=== PATIENT | female | born 1945 | race Caucasian/White ===

== ENCOUNTER 2019-02-04 09:09 | Emergency (ER) | payer MEDICARE, BC ==
[2019-02-04 09:26] VITALS: BP 107/52
--- NOTE | 2019-02-04 10:41 | UC ---
Skin Complaint HPI - HPI Summary HPI Summary: PATIENT HAS BEEN DOING A LOT OF WORK IN HER HOUSE OVER THE PAST FEW DAYS. 3 DAYS AGO NOTICED A DARK SPOT UNDER HER RIGHT THUMBNAIL. IT IS BECOMING MORE PAINFUL AND THE SURROUNDING SKIN IS TURNING RED. NO DRAINAGE. NO FEVER. UNKNOWN DATE OF LAST TETANUS. - History of Current Complaint Chief Complaint: UCSkin Time Seen by Provider: 02/04/19 10:23 Stated Complaint: FB IN FINGER Hx Obtained From: Patient Onset/Duration: Gradual Onset, Lasting Days, Still Present Timing: Constant Onset Severity: Moderate Current Severity: Moderate Pain Intensity: 3 Pain Scale Used: 0-10 Numeric Character: Pain, Redness Aggravating Factor(s): Touch Alleviating Factor(s): Nothing Associated Signs & Symptoms: Positive: Tenderness Related History: Foreign Body - Allergy/Home Medications Allergies/Adverse Reactions: Allergies Allergy/AdvReac Type Severity Reaction Status Date / Time azithromycin Allergy Severe GI Upset Verified 07/22/17 07:43 erythromycin base Allergy Intermediate GI Upset Verified 07/22/17 07:43 prochlorperazine Allergy Intermediate Altered Verified 07/22/17 07:43 Mental Status Sulfa (Sulfonamide AdvReac Mild Nausea Verified 07/22/17 07:43 Antibiotics) Home Medications: Home Medications Atorvastatin* [Lipitor 20 MG*] 20 mg PO DAILY 02/04/19 [History Confirmed ] Enalapril Maleate [Vasotec] 10 mg PO DAILY 02/04/19 [History Confirmed 02/04/19] Mirtazapine 7.5 mg PO BEDTIME 02/04/19 [History Confirmed 02/04/19] buPROPion HCl [Bupropion Xl] 150 mg PO DAILY 02/04/19 [History Confirmed ] PMH/Surg Hx/FS Hx/Imm Hx Cancer History: Breast Cancer - Surgical History Surgical History: Yes Surgery Procedure, Year, and Place: bilateral mastectomy,tonsillectomy - Family History Known Family History: Positive: Non-Contributory - Social History Alcohol Use: None Substance Use Type: None Substance Use Comment - Amount & Last Used: Flexeril, Nucynta, Smoking Status (MU): Never Smoked Tobacco Have You Smoked in the Last Year: No Review of Systems All Other Systems Reviewed And Are Negative: Yes Constitutional: Positive: Negative Skin: Positive: Other - SPLINTER RIGHT THUMB Respiratory: Positive: Negative Cardiovascular: Positive: Negative Gastrointestinal: Positive: Negative Musculoskeletal: Positive: Negative Physical Exam Triage Information Reviewed: Yes Appearance: Well-Appearing, No Pain Distress, Well-Nourished Vital Signs: Initial Vital Signs Temp 97.8 F 02/04/19 09:22 Pulse 81 02/04/19 09:22 Resp 18 02/04/19 09:22 BP 107/52 02/04/19 09:22 Pulse Ox 98 02/04/19 09:22 Vital Signs Reviewed: Yes Eyes: Positive: Conjunctiva Clear ENT: Positive: Hearing grossly normal Neck: Positive: Supple Respiratory: Positive: No respiratory distress, No accessory muscle use Cardiovascular: Positive: Pulses Normal Abdomen Description: Positive: Soft Musculoskeletal: Positive: ROM Intact, No Edema Neurological: Positive: Alert Psychological: Positive: Age Appropriate Behavior Skin: Positive: Other - RIGHT THUMB WITH ERYTHEMA DISTALLY. 2MM DARK SPOT UNDER DISTAL NAIL BED Course/Dx - Course Course Of Treatment: PATIENT WITH PROBABLE SPLINTER UNDER RIGHT THUMBNAIL WITH ASSOCIATED INFECTION. DISCUSSED WITH PATIENT DIGITAL BLOCK WITH ATTEMPTED REMOVAL OF SPLINTER. PATIENT OPTS FOR HOT SOAKS, ANTIBIOTICS AND CAREFUL OBSERVATION AT HOME. WILL COVER WITH KEFLEX. SHE WILL FOLLOW-UP WITH HER PCP OR RETURN TO THE URGENT CARE IF SHE IS NOT IMPROVING OVER THE NEXT WEEK. TDAP BOOSTED. - Diagnoses Provider Diagnosis: Foreign body of right thumb with infection, Need for Tdap vaccination Discharge ED - Sign-Out/Discharge Documenting (check all that apply): Patient Departure All imaging exams completed and their final reports reviewed: No Studies - Discharge Plan Condition: Stable Disposition: HOME Prescriptions: Cephalexin CAP* [Keflex 500 CAP*] 1,000 mg PO BID #[id number] cap Patient Education Materials: Soft Tissue Foreign Body (ED), Cellulitis (ED) Referrals: Lauren Guevara MD [Primary Care Provider] - If Needed Additional Instructions: SOAK YOUR THUMB IN HOT WATER 4 TIMES DAILY TAKE THE ANTIBIOTICS TWICE DAILY PRESCRIBED TO COVER FOR INFECTION ALLOW YOUR NAIL TO GROW OUT AND THE FOREIGN BODY MAY COME OUT SEEK FOLLOW-UP IF YOU DEVELOP INCREASING PAIN, SPREADING REDNESS OF THE SKIN, PURULENT DRAINAGE, FEVER OR ANY OTHER CONCERNING SYMPTOMS. - Billing Disposition and Condition Condition: STABLE Disposition: Home
[2019-02-04] MEDS ORDERED: Tetan/Diph/Pertus SYR(Tdap)* 0.5 ML SYR(BOOSTRIX) use SYR contains LATEX IM ONE (10:54)
== END 2019-02-04 11:09 | disposition home or self-care (01) ==
LOC: UCEAST 09:09
DX: S60.351A Superficial foreign body of right thumb, initial encounter (principal); Z23 Encounter for immunization; Z88.1 Allergy status to other antibiotic agents; Z88.2 Allergy status to sulfonamides; Z85.3 Personal history of malignant neoplasm of breast; Z88.8 Allergy status to other drugs, medicaments and biological substances; W45.8XXA Other foreign body or object entering through skin, initial encounter; Y92.009 Unspecified place in unspecified non-institutional (private) residence as the place of occurrence of the external cause
CPT/HCPCS: 90715; 99213; G0463

== ENCOUNTER 2023-05-15 15:07 | Inpatient (IN) ==
[2023-05-15] MEDS: Lactated Ringers 1000 ml BAG 1,000 ML IV ONE (15:41)
[2023-05-15] MEDS: Ondansetron 4 mg VIAL 2 MG/ML 2 ml VIAL IV ONE ×2 (15:41→15:43)
[2023-05-15] MEDS: Labetalol IV 5 MG/ML 20 ml VIAL IV PUSH ONE (16:02)
[2023-05-15] MEDS ORDERED: Azithromycin 500 mg/250 ml NS 500 MG/250 ML BAG ONE (16:30)
[2023-05-15 16:44] LABS: ABS Lymphocytes 0.5 10^3/uL (1.0-4.8); ABS Monocytes 0.4 10^3/uL (0.0-0.9); ABS Neutrophils 11.6 10^3/uL (1.5-7.6); ABS Nucleated RBC 0.02 10^3/ul; Eosinophil % 0.1 %; Hematocrit 41.6 % (35-45); Hemoglobin 13.2 g/dL (11.5-14.3); Lymphocyte % 4.3 %; Mean Corpuscular Hgb Conc 31.8 g/dL (31-36); Mean Corpuscular Volume 97.3 fL (80-97); Mean Platelet Volume 7.9 fL (7.5-11.2); Nucleated Red Blood Cells % 0.1 %/100WBC (0.0-0.8); Platelet Count 363 10^3/uL (150-450); Red Blood Count 4.28 10^6/uL (3.63-4.92); Red Cell Distribution Width 15.3 % (12-17); White Blood Count 12.6 10^3/uL (3.8-11.8)
[2023-05-15 16:51] LABS: Albumin 3.7 g/dL (3.2-5.2); Albumin/Globulin Ratio 1.9 (1-3); Calcium 8.9 mg/dL (8.6-10.3); Creatinine, Serum 1.47 mg/dL (0.51-0.95); Potassium 3.6 mmol/L (3.5-5.0); Total Bilirubin 0.5 mg/dL (0.2-1.0); Total Protein 5.7 g/dL (6.4-8.9); eGFR CKD-EPI 36.1 (>60)
[2023-05-15 21:36] LABS: Urine Appearance Clear; Urine Bilirubin Negative (Negative); Urine Blood 3+ (Negative); Urine Color Light-Yellow; Urine Glucose Negative (Negative); Urine Ketones Negative (Negative); Urine Nitrite Negative (Negative); Urine Protein 3+ (>=300 mg/dL) (Negative); Urine Specific Gravity 1.019 (1.002-1.030); Urine Urobilinogen Negative (Negative)
[2023-05-15 21:58] LABS: Urine Bacteria Absent /HPF (Absent); Urine Red Blood Cell 1+(3-5/hpf) /HPF (0-Trace); Urine Squamous Epithelial Cell Present /HPF (Absent); Urine White Blood Cell 1+(6-10/hpf) /HPF (0-Trace)
[2023-05-15] MEDS: Lactated Ringers 1000 ml BAG 1,000 ML IV SCH (22:27)
[2023-05-16] MEDS ORDERED: Enoxaparin 30 MG/0.3 ML SYR SUBCUT SCH (03:00)
[2023-05-16] MEDS: Enoxaparin 30 MG/0.3 ML SYR SUBCUT SCH (04:32)
[2023-05-16] MEDS: cefTRIAXone 1 gm/50 mL D5W 1 GM/50 ML BAG IV SCH (04:32)
[2023-05-16] MEDS: Labetalol IV 5 MG/ML 20 ml VIAL IV PUSH ONE (04:33)
[2023-05-16] MEDS: Lactated Ringers 1000 ml BAG 1,000 ML IV SCH ×3 (06:20→18:17)
[2023-05-16 07:40] LABS: Hematocrit 38.4 % (35-45); Hemoglobin 12.2 g/dL (11.5-14.3); Mean Corpuscular Hemoglobin 30.7 pg (27-33); Mean Corpuscular Hgb Conc 31.9 g/dL (31-36); Mean Corpuscular Volume 96.2 fL (80-97); Mean Platelet Volume 7.8 fL (7.5-11.2); Platelet Count 412 10^3/uL (150-450); Red Blood Count 3.99 10^6/uL (3.63-4.92); Red Cell Distribution Width 15.7 % (12-17); White Blood Count 15.7 10^3/uL (3.8-11.8)
[2023-05-16 07:49] LABS: Calcium 9.2 mg/dL (8.6-10.3); Creatinine, Serum 2.01 mg/dL (0.51-0.95); Potassium 3.9 mmol/L (3.5-5.0); eGFR CKD-EPI 24.8 (>60)
[2023-05-16 15:15] LABS: Hemoglobin 11.7 g/dL (11.5-14.3); Mean Corpuscular Hemoglobin 30.6 pg (27-33); Mean Corpuscular Hgb Conc 33.4 g/dL (31-36); Mean Corpuscular Volume 91.7 fL (80-97); Mean Platelet Volume 8.1 fL (7.5-11.2); Platelet Count 386 10^3/uL (150-450); Red Blood Count 3.82 10^6/uL (3.63-4.92); Red Cell Distribution Width 14.6 % (12-17); White Blood Count 15.6 10^3/uL (3.8-11.8)
[2023-05-16 15:49] LABS: C Reactive Protein 2.82 mg/L (<8.01); Calcium 8.9 mg/dL (8.6-10.3); Creatinine, Serum 2.14 mg/dL (0.51-0.95); Potassium 3.9 mmol/L (3.5-5.0)
[2023-05-16] MEDS ORDERED: Labetalol IV 5 MG/ML 20 ml VIAL IV PUSH PRN (16:39)
[2023-05-16] MEDS ORDERED: Lorazepam PYXIS KEY PRN ×2 (16:44→16:57)
[2023-05-16] MEDS ORDERED: LORazepam 2 mg VIAL 1 ml IV PUSH PRN (16:57)
[2023-05-16] MEDS: Labetalol IV 5 MG/ML 20 ml VIAL IV PUSH PRN (17:17)
[2023-05-16] MEDS: Ondansetron ODT 4 mg TAB 4 MG TAB PO PRN (17:17)
[2023-05-16] MEDS: LORazepam 2 mg VIAL 1 ml IV PUSH ONE (19:26)
[2023-05-16] MEDS: Latanoprost 0.005% 2.5 ml BTL BOTH EYES SCH (21:49)
[2023-05-17 06:45] LABS: Hematocrit 32.2 % (35-45); Hemoglobin 10.7 g/dL (11.5-14.3); Mean Corpuscular Hemoglobin 30.8 pg (27-33); Mean Corpuscular Hgb Conc 33.2 g/dL (31-36); Mean Corpuscular Volume 92.7 fL (80-97); Platelet Count 314 10^3/uL (150-450); Red Blood Count 3.47 10^6/uL (3.63-4.92); Red Cell Distribution Width 14.5 % (12-17); White Blood Count 13.2 10^3/uL (3.8-11.8)
[2023-05-17 07:09] LABS: Calcium 8.6 mg/dL (8.6-10.3); Creatinine, Serum 1.76 mg/dL (0.51-0.95); Magnesium 1.6 mg/dL (1.9-2.7); Potassium 3.4 mmol/L (3.5-5.0); eGFR CKD-EPI 29.1 (>60)
[2023-05-17] MEDS: Magnesium Sulf 4 GM/100 ML IV 4,000 MG/100 ML BAG IVPB ONE (09:44)
[2023-05-17] MEDS: Labetalol IV 5 MG/ML 20 ml VIAL IV PUSH PRN (09:45)
[2023-05-17] MEDS: Lactated Ringers 1000 ml BAG 1,000 ML IV SCH (10:28)
[2023-05-17] MEDS: Potassium Chlor 20 meq TAB.ER PO ONE (11:46)
[2023-05-17] MEDS: KCL 20 MEQ/100 ML IVPREMIX 20 MEQ/100 ML BAG IV SCH (14:37)
[2023-05-18 08:06] LABS: Calcium 8.6 mg/dL (8.6-10.3); Creatinine, Serum 1.52 mg/dL (0.51-0.95); Magnesium 2.5 mg/dL (1.9-2.7); Potassium 4.1 mmol/L (3.5-5.0); eGFR CKD-EPI 34.7 (>60)
[2023-05-18 08:19] LABS: Hematocrit 37.1 % (35-45); Hemoglobin 12.4 g/dL (11.5-14.3); Mean Corpuscular Hemoglobin 31.2 pg (27-33); Mean Corpuscular Hgb Conc 33.4 g/dL (31-36); Mean Corpuscular Volume 93.2 fL (80-97); Mean Platelet Volume 8.2 fL (7.5-11.2); Platelet Count 323 10^3/uL (150-450); Red Blood Count 3.98 10^6/uL (3.63-4.92); Red Cell Distribution Width 14.9 % (12-17); White Blood Count 13.2 10^3/uL (3.8-11.8)
[2023-05-18] MEDS ORDERED: Lorazepam PYXIS KEY PRN (11:25)
[2023-05-18] MEDS: LORazepam 2 mg VIAL 1 ml IV PUSH PRN (13:19)
[2023-05-18] MEDS: Lactated Ringers 1000 ml BAG 1,000 ML IV SCH (17:13)
[2023-05-19 06:04] LABS: Hematocrit 35.1 % (35-45); Hemoglobin 11.8 g/dL (11.5-14.3); Mean Corpuscular Hemoglobin 31.3 pg (27-33); Mean Corpuscular Hgb Conc 33.5 g/dL (31-36); Mean Corpuscular Volume 93.3 fL (80-97); Platelet Count 343 10^3/uL (150-450); Red Blood Count 3.76 10^6/uL (3.63-4.92); Red Cell Distribution Width 14.8 % (12-17); White Blood Count 11.6 10^3/uL (3.8-11.8)
[2023-05-19 06:19] LABS: Calcium 8.1 mg/dL (8.6-10.3); Creatinine, Serum 1.47 mg/dL (0.51-0.95); Magnesium 2.2 mg/dL (1.9-2.7); Potassium 3.7 mmol/L (3.5-5.0); eGFR CKD-EPI 36.1 (>60)
[2023-05-19] MEDS: Polyethylene Glycol 3350 17 GM PACKET PO PRN (10:49)
[2023-05-19] MEDS: Senna TAB 8.6 mg TAB PO PRN (10:49)
[2023-05-20 05:50] LABS: ABS Basophils 0.1 10^3/uL (0.0-0.1); ABS Eosinophils 0.7 10^3/uL (0.0-0.5); ABS Lymphocytes 1.8 10^3/uL (1.0-4.8); ABS Neutrophils 8.9 10^3/uL (1.5-7.6); ABS Nucleated RBC 0.01 10^3/ul; Eosinophil % 5.2 %; Hematocrit 36.4 % (35-45); Hemoglobin 12.3 g/dL (11.5-14.3); Lymphocyte % 14.4 %; Mean Corpuscular Hemoglobin 31.1 pg (27-33); Mean Corpuscular Hgb Conc 33.8 g/dL (31-36); Mean Corpuscular Volume 92.1 fL (80-97); Mean Platelet Volume 7.8 fL (7.5-11.2); Nucleated Red Blood Cells % 0.1 %/100WBC (0.0-0.8); Platelet Count 382 10^3/uL (150-450); Red Blood Count 3.95 10^6/uL (3.63-4.92); Red Cell Distribution Width 14.4 % (12-17); White Blood Count 12.4 10^3/uL (3.8-11.8)
[2023-05-20 06:15] LABS: Calcium 8.2 mg/dL (8.6-10.3); Creatinine, Serum 1.46 mg/dL (0.51-0.95); Magnesium 2.1 mg/dL (1.9-2.7); Potassium 3.6 mmol/L (3.5-5.0); eGFR CKD-EPI 36.4 (>60)
[2023-05-20] MEDS: Labetalol IV 5 MG/ML 20 ml VIAL IV PUSH ONE ×2 (08:57→11:16)
[2023-05-20] MEDS: Potassium Chlor 20 meq TAB.ER PO ONE (09:34)
[2023-05-21 05:37] LABS: ABS Basophils 0.1 10^3/uL (0.0-0.1); ABS Eosinophils 0.7 10^3/uL (0.0-0.5); ABS Lymphocytes 1.6 10^3/uL (1.0-4.8); ABS Monocytes 0.7 10^3/uL (0.0-0.9); ABS Neutrophils 8.6 10^3/uL (1.5-7.6); ABS Nucleated RBC 0.01 10^3/ul; Eosinophil % 5.6 %; Hematocrit 35.3 % (35-45); Hemoglobin 11.8 g/dL (11.5-14.3); Lymphocyte % 13.7 %; Mean Corpuscular Hemoglobin 30.9 pg (27-33); Mean Corpuscular Hgb Conc 33.5 g/dL (31-36); Mean Corpuscular Volume 92.4 fL (80-97); Mean Platelet Volume 7.9 fL (7.5-11.2); Nucleated Red Blood Cells % 0.1 %/100WBC (0.0-0.8); Platelet Count 357 10^3/uL (150-450); Red Blood Count 3.82 10^6/uL (3.63-4.92); Red Cell Distribution Width 14.3 % (12-17); White Blood Count 11.7 10^3/uL (3.8-11.8)
[2023-05-21 06:00] LABS: Calcium 8.3 mg/dL (8.6-10.3); Creatinine, Serum 1.46 mg/dL (0.51-0.95); Potassium 3.9 mmol/L (3.5-5.0); eGFR CKD-EPI 36.4 (>60)
[2023-05-22] MEDS ORDERED: Senna TAB 8.6 mg TAB PO SCH (09:00)
[2023-05-22] MEDS: Senna TAB 8.6 mg TAB PO SCH (09:16)
[2023-05-22] MEDS: Polyethylene Glycol 3350 17 GM PACKET PO SCH (09:17)
[2023-05-23 14:15] VITALS: BP 135/61
== END 2023-05-23 16:35 | disposition home or self-care (01) | DRG 871 ==
LOC: ED 15:07 → EDHOLD 15:07 → SUATTDRO 05-16 02:29 → MEDTELE 05-16 04:22 → SUATTDRO 05-18 08:00
PROVIDERS: ADMIT Internal Medicine; ATTEND Internal Medicine

== ENCOUNTER 2023-10-05 10:07 | Observation (INO) ==
[2023-10-05 15:18] LABS: Hematocrit 36.3 % (35-45); Hemoglobin 11.8 g/dL (11.5-14.3); Mean Corpuscular Hemoglobin 30.7 pg (27-33); Mean Corpuscular Hgb Conc 32.6 g/dL (31-36); Platelet Count 444 10^3/uL (150-450); Red Blood Count 3.86 10^6/uL (3.63-4.92); Red Cell Distribution Width 14.5 % (12-17); White Blood Count 16.1 10^3/uL (3.8-11.8)
[2023-10-05 15:27] LABS: INR 1.12 (0.83-1.13)
[2023-10-05 15:39] LABS: Albumin 4.2 g/dL (3.2-5.2); Albumin/Globulin Ratio 1.4 (1-3); Calcium 9.2 mg/dL (8.6-10.3); Creatinine, Serum 1.87 mg/dL (0.51-0.95); Globulin 2.9 g/dL (2-4); Potassium 4.4 mmol/L (3.5-5.0); Total Bilirubin 0.4 mg/dL (0.2-1.0); Total Protein 7.1 g/dL (6.4-8.9)
[2023-10-05] MEDS ORDERED: Ondansetron ODT 4 mg TAB 4 MG TAB PO PRN (16:28)
[2023-10-05 16:42] LABS: ABS Basophils 0.1 10^3/uL (0.0-0.1); ABS Eosinophils 0.1 10^3/uL (0.0-0.5); ABS Lymphocytes 0.9 10^3/uL (1.0-4.8); ABS Monocytes 1.6 10^3/uL (0.0-0.9); ABS Neutrophils 13.5 10^3/uL (1.5-7.6); Eosinophil % 0.4 %; Lymphocyte % 5.7 %
[2023-10-05] MEDS: Latanoprost 0.005% 2.5 ml BTL BOTH EYES SCH (20:54)
[2023-10-06 05:49] LABS: Hematocrit 30.7 % (35-45); Hemoglobin 10.2 g/dL (11.5-14.3); Mean Corpuscular Hemoglobin 30.7 pg (27-33); Mean Corpuscular Hgb Conc 33.2 g/dL (31-36); Mean Corpuscular Volume 92.4 fL (80-97); Mean Platelet Volume 7.9 fL (7.5-11.2); Platelet Count 459 10^3/uL (150-450); Red Blood Count 3.32 10^6/uL (3.63-4.92); Red Cell Distribution Width 14.2 % (12-17)
[2023-10-06 06:01] LABS: ABS Basophils 0.1 10^3/uL (0.0-0.1); ABS Neutrophils 16.9 10^3/uL (1.5-7.6); Lymphocyte % 5.2 %
[2023-10-06] MEDS: cloNIDine 0.2 MG PATCH 0.2 MG/24 HR 7 DAY PATCH TRANSDERM SCH (09:14)
[2023-10-06 09:22] VITALS: BP 186/72
[2023-10-08 12:16] LABS: Protein C Activity 137 % (70 - 150)
[2023-10-08 13:01] LABS: Coagulation F VIII Activity 344 % (55 - 200); von Willebrand Factor Activity 283 % (55 - 200)
[2023-10-08 14:38] LABS: Protein S Activity, P 95 % (65-150)
== END 2023-10-06 09:18 | disposition home or self-care (01) ==
LOC: EDHOLD 10:07 → ED 10:07 → EDHOLD 10-06 09:17
PROVIDERS: ADMIT Student in an Organized Health Care Education/Training Program; ATTEND Student in an Organized Health Care Education/Training Program

== ENCOUNTER 2023-10-08 08:12 | Inpatient (IN) ==
[2023-10-08 09:10] LABS: ABS Basophils 0.1 10^3/uL (0.0-0.1); ABS Lymphocytes 0.6 10^3/uL (1.0-4.8); ABS Monocytes 0.8 10^3/uL (0.0-0.9); ABS Neutrophils 15.7 10^3/uL (1.5-7.6); ABS Nucleated RBC 0.01 10^3/ul; Eosinophil % 0.1 %; Hematocrit 31.7 % (35-45); Hemoglobin 10.4 g/dL (11.5-14.3); Lymphocyte % 3.3 %; Mean Corpuscular Hemoglobin 30.4 pg (27-33); Mean Corpuscular Hgb Conc 32.8 g/dL (31-36); Mean Corpuscular Volume 92.5 fL (80-97); Mean Platelet Volume 8.1 fL (7.5-11.2); Nucleated Red Blood Cells % 0.1 %/100WBC (0.0-0.8); Platelet Count 587 10^3/uL (150-450); Red Blood Count 3.43 10^6/uL (3.63-4.92); Red Cell Distribution Width 14.4 % (12-17); White Blood Count 17.2 10^3/uL (3.8-11.8)
[2023-10-08 09:20] LABS: Activated Partial Thrombo Time 33.7 seconds (26.0-38.0); INR 1.58 (0.83-1.13)
[2023-10-08] MEDS: Lactated Ringers 1000 ml BAG 1,000 ML IV ONE (09:32)
[2023-10-08 09:55] LABS: Albumin 3.7 g/dL (3.2-5.2); Albumin/Globulin Ratio 1.2 (1-3); C Reactive Protein 474.93 mg/L (<8.01); Creatinine, Serum 2.52 mg/dL (0.51-0.95); Globulin 3.2 g/dL (2-4); Potassium 4.4 mmol/L (3.5-5.0); Total Bilirubin 0.4 mg/dL (0.2-1.0); Total Protein 6.9 g/dL (6.4-8.9); eGFR CKD-EPI 18.9 (>60)
[2023-10-08] MEDS ORDERED: Lactated Ringers 1000 ml BAG 1,000 ML IV SCH (10:00)
[2023-10-08] MEDS: Piperacillin/Tazobac 3.375 BAG 3.375 GM/100 ML BAG IV ONE (10:06)
[2023-10-08 10:47] LABS: High Sensitivity Troponin 1 Hr 22 pg/mL (<15)
[2023-10-08 10:55] LABS: Urine Appearance Turbid; Urine Bilirubin Negative (Negative); Urine Blood Trace (Negative); Urine Color Light-Yellow; Urine Glucose Negative (Negative); Urine Ketones Negative (Negative); Urine Nitrite Negative (Negative); Urine Protein 2+ (>=100 mg/dL) (Negative); Urine Specific Gravity 1.014 (1.002-1.030); Urine Urobilinogen Negative (Negative); Urine pH 5.5 (5.0-8.0)
[2023-10-08 10:56] LABS: Urine Bacteria Absent /HPF (Absent); Urine Red Blood Cell Trace(0-2/hpf) /HPF (0-Trace); Urine White Blood Cell Trace(0-5/hpf) /HPF (0-Trace)
[2023-10-08 15:37] LABS: Hepatitis B Surface Antigen Nonreactive (Nonreactive)
[2023-10-08 15:42] LABS: Hepatitis A Ab IgM Negative (Negative); Hepatitis B Core IgM Nonreactive (Nonreactive)
[2023-10-08 15:54] LABS: Hepatitis C Antibody Negative (Negative)
[2023-10-08] MEDS ORDERED: Vancomycin per Pharmacy 1 EA NOTE FOLLOW UP PRN (17:54)
[2023-10-08] MEDS ORDERED: Zosyn per Pharmacy NOTE FOLLOW UP SCH (18:00)
[2023-10-08] MEDS ORDERED: Dextrose 50% Syringe 50 ml 25 GM/50 ML SYRINGE IV PUSH PRN (18:21)
[2023-10-08] MEDS: ZOSYN 3.375 GM x ONE DOSE over 30 miuntes IV (18:30)
[2023-10-08] MEDS: Vancomycin 1,000 MG in NS 0.9% 250 ml 250 ML IVPB ONE (18:48)
[2023-10-08] MEDS: ZOSYN 3.375 GM Q12H per EXTENDED INFUSION IV SCH ×2 (22:38→22:45)
[2023-10-08] MEDS: Latanoprost 0.005% 2.5 ml BTL BOTH EYES SCH (22:45)
[2023-10-09 06:17] LABS: Hematocrit 32.1 % (35-45); Hemoglobin 10.6 g/dL (11.5-14.3); Mean Corpuscular Hemoglobin 30.6 pg (27-33); Mean Corpuscular Volume 92.7 fL (80-97); Mean Platelet Volume 7.8 fL (7.5-11.2); Platelet Count 601 10^3/uL (150-450); Red Blood Count 3.46 10^6/uL (3.63-4.92); Red Cell Distribution Width 14.5 % (12-17); White Blood Count 14.7 10^3/uL (3.8-11.8)
[2023-10-09 07:25] LABS: ALT 237 U/L (7-52); Albumin 3.3 g/dL (3.2-5.2); Albumin/Globulin Ratio 1.1 (1-3); Alkaline Phosphatase 697 U/L (35-149); Anion Gap 13 mmol/L (2-16); Blood Urea Nitrogen 49 mg/dL (6-24); CO2 Carbon Dioxide 19 mmol/L (22-32); Calcium 8.5 mg/dL (8.6-10.3); Chloride 105 mmol/L (101-111); Creatinine, Serum 2.34 mg/dL (0.51-0.95); Globulin 3.1 g/dL (2-4); Glucose 112 mg/dL (70-100); Sodium 137 mmol/L (135-145); Total Bilirubin 0.6 mg/dL (0.2-1.0); Total Protein 6.4 g/dL (6.4-8.9); Vancomycin Random 13.8 mcg/mL; eGFR CKD-EPI 20.7 (>60)
[2023-10-09 08:36] LABS: Direct Bilirubin Redraw 0.3 mg/dL (0.1-0.5); Potassium Redraw 4.2 mmol/L (3.5-5.0)
[2023-10-09] MEDS: Vancomycin Random Level NOTE FOLLOW UP ONE (11:23)
[2023-10-09] MEDS: cloNIDine 0.2 MG PATCH 0.2 MG/24 HR 7 DAY PATCH TRANSDERM SCH (11:26)
[2023-10-09] MEDS: Lactated Ringers 1000 ml BAG 1,000 ML IV ONE (13:44)
[2023-10-09] MEDS: Vancomycin 1,250 MG in NS 0.9% 250 ml 250 ML IVPB ONE (18:02)
[2023-10-10 08:09] LABS: Hematocrit 25.4 % (35-45); Hemoglobin 8.5 g/dL (11.5-14.3); Mean Corpuscular Hemoglobin 30.7 pg (27-33); Mean Corpuscular Hgb Conc 33.6 g/dL (31-36); Mean Corpuscular Volume 91.4 fL (80-97); Mean Platelet Volume 7.7 fL (7.5-11.2); Platelet Count 602 10^3/uL (150-450); Red Blood Count 2.78 10^6/uL (3.63-4.92); Red Cell Distribution Width 14.6 % (12-17); White Blood Count 17.1 10^3/uL (3.8-11.8)
[2023-10-10 08:12] LABS: ABS Basophils 0.2 10^3/uL (0.0-0.1); ABS Eosinophils 0.1 10^3/uL (0.0-0.5); ABS Lymphocytes 1.2 10^3/uL (1.0-4.8); ABS Monocytes 1.6 10^3/uL (0.0-0.9); ABS Neutrophils 14.1 10^3/uL (1.5-7.6); Eosinophil % 0.7 %; Lymphocyte % 6.7 %
[2023-10-10 08:52] LABS: Albumin 2.9 g/dL (3.2-5.2); Albumin/Globulin Ratio 1.2 (1-3); Calcium 8.3 mg/dL (8.6-10.3); Creatinine, Serum 2.34 mg/dL (0.51-0.95); Globulin 2.5 g/dL (2-4); Potassium 4.3 mmol/L (3.5-5.0); Total Bilirubin 0.5 mg/dL (0.2-1.0); Total Protein 5.4 g/dL (6.4-8.9); Vancomycin Random 19.7 mcg/mL; eGFR CKD-EPI 20.7 (>60)
[2023-10-10] MEDS ORDERED: Calcium Carb (TUMS) 500 mg CHEW TAB PO PRN (11:56)
[2023-10-10] MEDS: oxyCODONE/Acetamin 5/325 mg TAB PO PRN (12:13)
[2023-10-10] MEDS: Lactated Ringers 1000 ml BAG 1,000 ML IV ONE (12:19)
[2023-10-10] MEDS: Vancomycin Random Level NOTE FOLLOW UP ONE (13:57)
[2023-10-10] MEDS: Vancomycin 1,250 MG in NS 0.9% 250 ml 250 ML IVPB ONE (14:05)
[2023-10-11] MEDS: ceFAZolin 1 GM in Dextrose 1 GM/50 ML BAG IVPB SCH (06:09)
[2023-10-11 08:08] LABS: Albumin 2.8 g/dL (3.2-5.2); Albumin/Globulin Ratio 1.2 (1-3); C Reactive Protein 354.66 mg/L (<8.01); Calcium 8.1 mg/dL (8.6-10.3); Creatinine, Serum 2.19 mg/dL (0.51-0.95); Globulin 2.4 g/dL (2-4); Magnesium 1.9 mg/dL (1.9-2.7); Potassium 4.3 mmol/L (3.5-5.0); Total Bilirubin 0.4 mg/dL (0.2-1.0); Total Protein 5.2 g/dL (6.4-8.9); eGFR CKD-EPI 22.4 (>60)
[2023-10-11 09:38] LABS: Body Fluid Total Nucleated 69442 /mcL
[2023-10-11 09:52] LABS: ABS Basophils 0.1 10^3/uL (0.0-0.1); ABS Eosinophils 0.2 10^3/uL (0.0-0.5); ABS Lymphocytes 1.2 10^3/uL (1.0-4.8); ABS Monocytes 1.3 10^3/uL (0.0-0.9); ABS Neutrophils 14.1 10^3/uL (1.5-7.6); Eosinophil % 1.3 %; Hematocrit 25.1 % (35-45); Hemoglobin 8.5 g/dL (11.5-14.3); Mean Corpuscular Hemoglobin 30.7 pg (27-33); Mean Corpuscular Hgb Conc 33.6 g/dL (31-36); Mean Corpuscular Volume 91.5 fL (80-97); Mean Platelet Volume 7.7 fL (7.5-11.2); Platelet Count 695 10^3/uL (150-450); Red Blood Count 2.75 10^6/uL (3.63-4.92); Red Cell Distribution Width 14.8 % (12-17); White Blood Count 16.8 10^3/uL (3.8-11.8)
[2023-10-11 10:13] LABS: Body Fluid Appearance Cloudy; Body Fluid Color Yellow; Body Fluid Mono 1 %; Body Fluid Source Synovial Fluid; Body Fluid Total Cells Counted 200
[2023-10-11] MEDS ORDERED: Vancomycin Random Level NOTE FOLLOW UP ONE (12:00)
[2023-10-11] MEDS ORDERED: fentaNYL 100 mcg/2 ml 50 MCG/ML VIAL ONE (12:20)
[2023-10-11] MEDS ORDERED: Propofol 10 MG/ML 20 ML BTL ONE (12:20)
[2023-10-11] MEDS ORDERED: Lidocaine 2% PF 5 ML VIAL ONE (12:20)
[2023-10-11] MEDS ORDERED: Bupivacaine 0.5% SDV PF 30ML VIAL ONE (13:56)
[2023-10-11] MEDS ORDERED: Naloxone 0.4 mg VIAL 0.4 mg/ml 1 ml VIAL IV PRN ×2 (15:10)
[2023-10-11] MEDS ORDERED: Ondansetron 4 mg VIAL 2 MG/ML 2 ml VIAL ONE ×2 (15:10→16:04)
[2023-10-11] MEDS ORDERED: fentaNYL 100 mcg/2 ml 50 MCG/ML VIAL IV PRN (15:10)
[2023-10-11] MEDS ORDERED: Polyethylene Glycol 3350 17 GM PACKET PO PRN (15:31)
[2023-10-11] MEDS ORDERED: Magnesium Hydroxide LIQ 30 ML UDC PO PRN (15:31)
[2023-10-11] MEDS ORDERED: Senna TAB 8.6 mg TAB PO PRN (15:31)
[2023-10-11] MEDS ORDERED: ceFAZolin 1 GM ADVAN 1 GM in NS 0.9% 50 ML 50 ML IVPB SCH (16:00)
[2023-10-11] MEDS: Ondansetron 4 mg VIAL 2 MG/ML 2 ml VIAL IV PRN (16:07)
[2023-10-11] MEDS: ceFAZolin 2 GM in NS PREMIX 2 GM/100 ML BAG IVPB SCH (18:52)
[2023-10-11] MEDS: Magnesium Hydroxide LIQ 30 ML UDC PO SCH (21:33)
[2023-10-12 11:22] LABS: Hematocrit 25.1 % (35-45); Hemoglobin 8.4 g/dL (11.5-14.3); Mean Corpuscular Hemoglobin 30.5 pg (27-33); Mean Corpuscular Hgb Conc 33.4 g/dL (31-36); Mean Corpuscular Volume 91.4 fL (80-97); Mean Platelet Volume 7.6 fL (7.5-11.2); Platelet Count 733 10^3/uL (150-450); Red Blood Count 2.74 10^6/uL (3.63-4.92); White Blood Count 17.6 10^3/uL (3.8-11.8)
[2023-10-12 11:59] LABS: Albumin 2.8 g/dL (3.2-5.2); Albumin/Globulin Ratio 1.1 (1-3); Calcium 8.5 mg/dL (8.6-10.3); Creatinine, Serum 2.28 mg/dL (0.51-0.95); Globulin 2.5 g/dL (2-4); Potassium 4.5 mmol/L (3.5-5.0); Total Bilirubin 0.4 mg/dL (0.2-1.0); Total Protein 5.3 g/dL (6.4-8.9); eGFR CKD-EPI 21.3 (>60)
[2023-10-12 12:18] LABS: ABS Eosinophils 0.3 10^3/uL (0.0-0.5); ABS Lymphocytes 1.3 10^3/uL (1.0-4.8); ABS Monocytes 1.6 10^3/uL (0.0-0.9); ABS Neutrophils 14.4 10^3/uL (1.5-7.6); Eosinophil % 1.7 %; Lymphocyte % 7.4 %; RBC Morphology Normal (Normal)
[2023-10-12 20:58] LABS: Anaplasma phagocytophilum Negative (Negative); B. miyamotoi PCR, B Negative (Negative); Babesia divergens/MO-1 Negative (Negative); Babesia ducani Negative (Negative); Ehrlichia chaffeensis Negative (Negative); Ehrlichia ewingii/canis Negative (Negative); Ehrlichia muris eauclairensis Negative (Negative)
[2023-10-13] MEDS: Acetaminophen IV 1 GM/100ML 1,000 MG/100 ML BAG IV ONE (05:31)
[2023-10-13 08:31] LABS: ABS Basophils 0.1 10^3/uL (0.0-0.1); ABS Eosinophils 0.4 10^3/uL (0.0-0.5); ABS Lymphocytes 1.2 10^3/uL (1.0-4.8); ABS Monocytes 1.4 10^3/uL (0.0-0.9); ABS Neutrophils 12.9 10^3/uL (1.5-7.6); Eosinophil % 2.7 %; Hematocrit 24.7 % (35-45); Hemoglobin 8.4 g/dL (11.5-14.3); Lymphocyte % 7.7 %; Mean Corpuscular Hemoglobin 30.9 pg (27-33); Mean Corpuscular Hgb Conc 33.8 g/dL (31-36); Mean Corpuscular Volume 91.4 fL (80-97); Mean Platelet Volume 7.3 fL (7.5-11.2); Platelet Count 796 10^3/uL (150-450); Red Blood Count 2.71 10^6/uL (3.63-4.92); Red Cell Distribution Width 15.3 % (12-17); White Blood Count 16.1 10^3/uL (3.8-11.8)
[2023-10-13 09:02] LABS: Albumin 2.8 g/dL (3.2-5.2); Albumin/Globulin Ratio 1.1 (1-3); C Reactive Protein 277.82 mg/L (<8.01); Calcium 8.4 mg/dL (8.6-10.3); Creatinine, Serum 2.15 mg/dL (0.51-0.95); Globulin 2.5 g/dL (2-4); Potassium 4.2 mmol/L (3.5-5.0); Total Bilirubin 0.4 mg/dL (0.2-1.0); Total Protein 5.3 g/dL (6.4-8.9); eGFR CKD-EPI 22.9 (>60)
[2023-10-14 06:41] LABS: Hematocrit 22.6 % (35-45); Hemoglobin 7.7 g/dL (11.5-14.3); Mean Corpuscular Hemoglobin 30.9 pg (27-33); Mean Corpuscular Hgb Conc 34.1 g/dL (31-36); Mean Corpuscular Volume 90.6 fL (80-97); Mean Platelet Volume 7.2 fL (7.5-11.2); Platelet Count 656 10^3/uL (150-450); Red Cell Distribution Width 15.2 % (12-17); White Blood Count 15.2 10^3/uL (3.8-11.8)
[2023-10-14 07:19] LABS: Creatinine, Serum 2.06 mg/dL (0.51-0.95); Potassium 4.6 mmol/L (3.5-5.0); eGFR CKD-EPI 24.1 (>60)
[2023-10-14 07:47] LABS: ABS Basophils 0.2 10^3/uL (0.0-0.1); ABS Eosinophils 0.4 10^3/uL (0.0-0.5); ABS Lymphocytes 1.3 10^3/uL (1.0-4.8); ABS Monocytes 1.5 10^3/uL (0.0-0.9); ABS Neutrophils 11.7 10^3/uL (1.5-7.6); Eosinophil % 2.9 %; Lymphocyte % 8.8 %
[2023-10-14] MEDS: Ondansetron ODT 4 mg TAB 4 MG TAB PO PRN (16:35)
[2023-10-14] MEDS: Lidocaine 1% MPF 5 ML VIAL INJ ONE (18:37)
[2023-10-15 06:35] LABS: Hematocrit 25.2 % (35-45); Hemoglobin 8.5 g/dL (11.5-14.3)
[2023-10-15] MEDS: cloNIDine 0.2 MG PATCH 0.2 MG/24 HR 7 DAY PATCH TRANSDERM SCH (08:40)
[2023-10-15] MEDS: ceFAZolin 2 GM PREMIX 2 GM/50 ML BAG IVPB SCH (18:06)
[2023-10-16] MEDS: hydrALAZINE 20 mg/ml 1 ML Vial IV IV SLOW PU PRN (22:10)
[2023-10-17] MEDS: hydrALAZINE 20 mg/ml 1 ML Vial IV IV SLOW PU ONE (00:46)
[2023-10-17 00:47] LABS: High Sensitivity Troponin 1 Hr 19 pg/mL (<15)
[2023-10-17 05:58] LABS: ABS Basophils 0.1 10^3/uL (0.0-0.1); ABS Eosinophils 0.4 10^3/uL (0.0-0.5); ABS Lymphocytes 1.6 10^3/uL (1.0-4.8); ABS Monocytes 1.2 10^3/uL (0.0-0.9); ABS Neutrophils 13.2 10^3/uL (1.5-7.6); Eosinophil % 2.3 %; Hematocrit 23.9 % (35-45); Hemoglobin 7.8 g/dL (11.5-14.3); Lymphocyte % 9.6 %; Mean Corpuscular Hemoglobin 29.7 pg (27-33); Mean Corpuscular Hgb Conc 32.4 g/dL (31-36); Mean Corpuscular Volume 91.6 fL (80-97); Mean Platelet Volume 7.2 fL (7.5-11.2); Platelet Count 722 10^3/uL (150-450); Red Blood Count 2.61 10^6/uL (3.63-4.92); Red Cell Distribution Width 15.6 % (12-17); White Blood Count 16.5 10^3/uL (3.8-11.8)
[2023-10-17 06:38] LABS: Albumin 2.7 g/dL (3.2-5.2); Albumin/Globulin Ratio 1.1 (1-3); C Reactive Protein 154.25 mg/L (<8.01); Calcium 7.9 mg/dL (8.6-10.3); Creatinine, Serum 1.79 mg/dL (0.51-0.95); Globulin 2.4 g/dL (2-4); Potassium 4.4 mmol/L (3.5-5.0); Total Bilirubin 0.3 mg/dL (0.2-1.0); Total Protein 5.1 g/dL (6.4-8.9); eGFR CKD-EPI 28.5 (>60)
[2023-10-18 06:36] LABS: ABS Basophils 0.1 10^3/uL (0.0-0.1); ABS Eosinophils 0.3 10^3/uL (0.0-0.5); ABS Lymphocytes 1.7 10^3/uL (1.0-4.8); ABS Monocytes 1.1 10^3/uL (0.0-0.9); ABS Neutrophils 12.6 10^3/uL (1.5-7.6); Eosinophil % 1.8 %; Hematocrit 23.9 % (35-45); Hemoglobin 7.7 g/dL (11.5-14.3); Lymphocyte % 10.8 %; Mean Corpuscular Hemoglobin 29.3 pg (27-33); Mean Corpuscular Volume 91.4 fL (80-97); Mean Platelet Volume 7.3 fL (7.5-11.2); Platelet Count 693 10^3/uL (150-450); Red Blood Count 2.62 10^6/uL (3.63-4.92); Red Cell Distribution Width 14.9 % (12-17); White Blood Count 15.9 10^3/uL (3.8-11.8)
[2023-10-18 06:53] LABS: Albumin 2.7 g/dL (3.2-5.2); Albumin/Globulin Ratio 1.2 (1-3); Calcium 8.2 mg/dL (8.6-10.3); Creatinine, Serum 1.85 mg/dL (0.51-0.95); Globulin 2.3 g/dL (2-4); Magnesium 1.7 mg/dL (1.9-2.7); Potassium 4.5 mmol/L (3.5-5.0); Total Bilirubin 0.2 mg/dL (0.2-1.0); eGFR CKD-EPI 27.4 (>60)
[2023-10-18 10:17] VITALS: BP 131/45
== END 2023-10-18 14:30 | DRG 872 ==
LOC: ED 08:12 → EDHOLD 08:12 → MED 19:18 → SUATTDRO 10-11 09:45
PROVIDERS: ADMIT Internal Medicine; ATTEND Student in an Organized Health Care Education/Training Program